=== PATIENT | female | born 1965 | race Caucasian/White ===

== ENCOUNTER → 2018-08-02 | Outpatient (REF) | payer BC ==
[~2018-08-02] MED LIST: ASPI81TA85 PO; LOSA100T8 PO
[2018-08-02 13:13] LABS: BLOOD UREA NITROGEN 17 MG/DL (7-18); CALCIUM LEVEL 9.2 MG/DL (8.5-10.1); CARBON DIOXIDE LEVEL 27 MEQ/L (21-32); CHLORIDE LEVEL 106 MEQ/L (98-107); GLOMERULAR FILTRATION RATE > 60.0 (>51); GLUCOSE, FASTING 86 MG/DL (70-100); POTASSIUM SERUM 3.9 MEQ/L (3.5-5.1); SODIUM LEVEL 142 MEQ/L (136-145)
== END ==
LOC: M SFHCLERA 09:43
PROVIDERS: ATTEND Family Medicine
DX: R73.03 Prediabetes (principal)

== ENCOUNTER → 2018-08-23 | Outpatient (REF) | payer BC ==
[2018-08-25 16:40] LABS: HPV HYBRID CAPTURE II Negative (Negative)
== END ==
LOC: M LAB REF 18:16
PROVIDERS: ATTEND Obstetrics & Gynecology
DX: Z12.4 Encounter for screening for malignant neoplasm of cervix (principal)
CPT/HCPCS: 87624; G0123

== ENCOUNTER → 2018-08-30 | Outpatient (CLI) | payer BC ==
--- NOTE | 2018-08-30 18:44 | REP ---
Clinical: Postmenopausal bleeding. Technique: Transabdominal pelvic ultrasound followed by transvaginal examination for better evaluation of the endometrium and adnexa. Findings: Bladder is grossly unremarkable and measures 11.3 x 11.2 x 7.2 cm. Minimal bladder wall thickening cannot be excluded although no obvious abnormalities appreciated. Heterogeneous myomatous anteverted uterus measures 7.7 x 3.2 x 5.3 cm. Right intramural fibroid measures 1.6 x 1.4 x 1.3 cm; left intramural fibroid measures 0.7 x 0.6 x 0.5 cm; left intramural anterior fibroid measures 0.6 x 0.5 x 0.7 cm; left posterior intramural fibroid measures 1.2 x 0.9 x 1.1 cm. The cervix appears prominent and a small amount of endocervical fluid is appreciated of uncertain etiology but may represent hemorrhagic debris. Endometrial complex measures 5.3 mm thickness and no discrete endometrial abnormality is identified. Right ovary measures 2.5 x 1.2 x 1.6 cm and appears normal. Left ovary measures 2.1 x 1.8 x 2.4 cm and includes 1.2 cm cyst. No pelvic fluid or adnexal mass lesion. Impression: Heterogeneous myomatous uterus as described above. 1.2 cm left ovarian cyst likely physiologic. Electronically Signed by Thom Rice MD 08/30/2018 06:34 P
== END ==
LOC: M RAD 17:30
PROVIDERS: ATTEND Obstetrics & Gynecology
DX: N95.0 Postmenopausal bleeding (principal); N83.202 Unspecified ovarian cyst, left side; D25.1 Intramural leiomyoma of uterus

== ENCOUNTER 2018-09-28 09:26 | Day surgery (SDC) | payer BC ==
[~2018-09-28] VITALS: Ht 162.6 cm; Wt 99.8 kg
[~2018-09-28 09:26] MED LIST changes: +LR 1,000 ML IV ONE
[2018-09-28 09:52] LABS: HEMATOCRIT 41.3 % (36.0-47.0); HEMOGLOBIN 13.8 g/dl (12.0-15.5); MEAN CORPUSCULAR HEMOGLOBIN 29.4 pg (27.0-33.0); MEAN CORPUSCULAR HGB CONC 33.4 g/dl (32.0-36.5); MEAN CORPUSCULAR VOLUME 87.9 fl (80.0-96.0); PLATELET COUNT, AUTOMATED 284 10^3/uL (150-450); WHITE BLOOD COUNT 5.6 10^3/uL (4.0-10.0)
[2018-09-28 10:22] LABS: HCG, SERUM QUALITATIVE NEGATIVE (NEGATIVE)
[2018-09-28] MEDS ORDERED: SILVER NITRATE APPLICATOR As Ordered ONE (10:48)
[2018-09-28] MEDS ORDERED: ePHEDrine SULFATE 25 MG/5 ML(5MG/ML) SYRINGE As Ordered ONE (13:38)
[2018-09-28] MEDS ORDERED: ONDANSETRON 4MG/2ML VIAL (J2405) As Ordered ONE (13:39)
[2018-09-28] MEDS ORDERED: dexameTHASONE 4 MG/ML 1ML VIAL (J1100) As Ordered ONE (13:39)
[2018-09-28] MEDS ORDERED: ACETAMINOPHEN 1000MG 100ML IV BTL (OFIRMEV) (J0131 PER 10MG) As Ordered ONE (13:39)
[2018-09-28] MEDS ORDERED: fentaNYL 250 MCG/5 ML INJECTION (J3010) As Ordered ONE (13:39)
[2018-09-28] MEDS ORDERED: LIDOCAINE 2% INJ 100 MG/5 ML SDV (FOR ANES.) As Ordered ONE (13:39)
[2018-09-28] MEDS ORDERED: MIDAZOLAM INJ 2 MG/2 ML VIAL (J2250) As Ordered ONE (13:39)
[2018-09-28] MEDS ORDERED: KETOROLAC 60 MG/2 ML VIAL (J1885) As Ordered ONE (13:39)
[2018-09-28] MEDS ORDERED: NORCO, ANEXSIA 5/325MG TABLET (HYDROcodone/ACETAMINOPHEN) PO PRN (14:45)
[2018-09-28] MEDS ORDERED: fentaNYL 100 MCG/2 ML INJECTION (J3010) IV PRN (14:45)
[2018-09-28] MEDS ORDERED: LR 1,000 ML IV SCH (14:45)
[2018-09-28] MEDS ORDERED: ONDANSETRON 4MG/2ML VIAL (J2405) IV PRN (14:45)
--- NOTE | 2018-09-28 16:35 | ECGEPIP ---
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
[2018-09-28 16:45] VITALS: BP 167/75
--- NOTE | 2018-09-28 21:31 | RO ---
DATE OF PROCEDURE: 09/28/2018 PREOPERATIVE DIAGNOSIS: Postmenopausal bleeding. POSTOPERATIVE DIAGNOSIS: Postmenopausal bleeding. PROCEDURE PERFORMED: Hysteroscopy and endometrial biopsy. SURGEON: Eyad Morrell DO GLOBAL PRODUCT MANAGER: None. ANESTHESIA TYPE: General with LMA. SPECIMENS TO PATHOLOGY: Endometrial biopsy. ESTIMATED BLOOD LOSS: 10 mL. FLUID REPLACEMENT: 100 mL of lactated Ringer's. DRAINS: In-and-out catheter 400 mL COMPLICATIONS: None. PREOPERATIVE ANTIBIOTICS: None indicated. INTRAOPERATIVE FINDINGS: Atrophic vagina. Small nulliparous stenotic cervix. Atrophic appearing endometrium on hysteroscopy examination. INDICATION: The patient is a 53-year-old who experienced postmenopausal bleeding. We have elected to proceed with endometrial evaluation via hysteroscopy and endometrial biopsy under anesthesia. DESCRIPTION OF PROCEDURE: The patient was counseled and consented on the risks, benefits, indications, and alternatives of the procedure. Informed consent was obtained. She was taken to the operating room with an IV running and placed on the operating table in the dorsal supine position. General anesthesia was administered and the airway secured with an LMA without any difficulty. She was then placed in the high lithotomy position. She was prepared and draped in a normal sterile fashion. Time-out was performed per protocol. The bladder was drained with a sterile in-and-out catheter. A sterile speculum was placed with good visualization of the cervix. The anterior lip of the cervix was grasped with a single-tooth tenaculum and downward traction was applied. The stenotic cervix was dilated first with lacrimal duct probe and then sequentially with Luc dilators up to a #15. The uterus sounded to 7 cm. The cervix was so stenotic it would not accommodate the smallest curette that was on the table, so the decision was made to use an endometrial Pipelle with multiple passes to obtain tissue. Once it was felt that an adequate amount of tissue was obtained, the Pipelle was removed. The hysteroscope was placed transcervically into the intrauterine cavity. No intracavitary masses were evident. Atrophic appearing endometrium was present. No concerning mass was able to be visualized. The hysteroscope was removed. An additional pass of the endometrial Pipelle was taken to the level of the fundus, again sounded to 7 cm. One additional suction of tissue was performed and all of the tissue was sent together for permanent section. Minimal bleeding from the os was noted. The single-tooth tenaculum was removed. The tenaculum sites were hemostatic. Given the excellent hemostasis, decision was made to conclude the procedure. All instruments were removed from the vagina. The patient tolerated the entire procedure very well. Sponge, lap, needle and instrument counts were correct per protocol.
== END 2018-09-28 16:52 | disposition home or self-care (01) ==
LOC: M SDC 09:26
PROVIDERS: ATTEND Obstetrics & Gynecology
DX: N95.0 Postmenopausal bleeding (principal); N95.2 Postmenopausal atrophic vaginitis; D68.51 Activated protein C resistance; I10 Essential (primary) hypertension; Z79.82 Long term (current) use of aspirin; Z79.899 Other long term (current) drug therapy
CPT/HCPCS: 36415; 58558; 84703; 85027; 86850; 86900; 86901; 88305; 93005; J0131; J1100; J1885; J2250; J2405; J3010

== ENCOUNTER → 2019-01-24 | Outpatient (REF) | payer BC ==
[~2019-01-24] MED LIST changes: -LR 1,000 ML IV ONE
[2019-01-24 12:30] LABS: ALBUMIN 3.9 GM/DL (3.2-5.2); BILIRUBIN,DIRECT 0.1 MG/DL (0.0-0.2); BILIRUBIN,TOTAL 0.4 MG/DL (0.2-1.0); TOTAL PROTEIN 7.6 GM/DL (6.4-8.2)
== END ==
LOC: M SFHCLERA 09:04
PROVIDERS: ATTEND Family Medicine
DX: B35.9 Dermatophytosis, unspecified (principal)

== ENCOUNTER → 2020-02-27 | Outpatient (REF) | payer BC ==
[~2020-02-27] MED LIST changes: -ASPI81TA85 PO; +ASPI81TA86 PO
[2020-02-27 12:21] LABS: BLOOD UREA NITROGEN 18 MG/DL (7-18); CARBON DIOXIDE LEVEL 28 MEQ/L (21-32); CHLORIDE LEVEL 107 MEQ/L (98-107); CHOLESTEROL LEVEL 194 MG/DL (<200); CREATININE FOR GFR 0.68 MG/DL (0.55-1.30); GLOMERULAR FILTRATION RATE > 60.0 (>51); GLUCOSE, FASTING 95 MG/DL (70-100); HDL CHOLESTEROL 52 MG/DL (>40); LDL CHOLESTEROL 124 MG/DL (<100); NON-HDL-C 142 MG/DL; POTASSIUM SERUM 3.8 MEQ/L (3.5-5.1); SODIUM LEVEL 140 MEQ/L (136-145); TRIGLYCERIDES LEVEL 92 MG/DL (<150)
== END ==
LOC: M SFHCLERA 08:28
PROVIDERS: ATTEND Family Medicine
DX: I10 Essential (primary) hypertension (principal)

== ENCOUNTER → 2021-07-18 | Outpatient (CLI) | payer BC ==
[2021-07-18 11:27] LABS: HEMOGLOBIN A1c 5.6 %
[2021-07-18 11:33] LABS: ALBUMIN 3.5 GM/DL (3.2-5.2); ALT/SGPT 36 U/L (12-78); BILIRUBIN,TOTAL 0.3 MG/DL (0.2-1.0); BLOOD UREA NITROGEN 19 MG/DL (7-18); CARBON DIOXIDE LEVEL 29 MEQ/L (21-32); CHLORIDE LEVEL 107 MEQ/L (98-107); CHOLESTEROL LEVEL 183 MG/DL (<200); CHOLESTEROL RISK RATIO 3.452 (<5); CREATININE FOR GFR 0.76 MG/DL (0.55-1.30); GLOMERULAR FILTRATION RATE > 60.0 (>51); GLUCOSE, FASTING 100 MG/DL (70-100); HDL CHOLESTEROL 53 MG/DL (>40); LDL CHOLESTEROL 109 MG/DL (<100); NON-HDL-C 130 MG/DL; POTASSIUM SERUM 3.7 MEQ/L (3.5-5.1); SODIUM LEVEL 142 MEQ/L (136-145); TOTAL PROTEIN 7.6 GM/DL (6.4-8.2); TRIGLYCERIDES LEVEL 107 MG/DL (<150)
== END ==
LOC: M LAB 10:09
PROVIDERS: ATTEND Student in an Organized Health Care Education/Training Program
DX: Z13.1 Encounter for screening for diabetes mellitus (principal); I10 Essential (primary) hypertension

== ENCOUNTER → 2023-04-27 | Day surgery (SDC) | payer BC ==
[~2023-04-27] VITALS: Ht 162.6 cm; Wt 103.9 kg
[~2023-04-27] MED LIST changes: +ASPI81CH33 PO; +LIDOCAINE 2% 100MG/5ML SDV (FOR ANES.) As Ordered ONE; +propofoL 200 MG/20 ML VIAL As Ordered ONE
[2023-04-27] MEDS: NS 1,000 ML IV ONE (08:39)
[2023-04-27 10:02] VITALS: TEMP 98.6
[2023-04-27 10:20] VITALS: BP 122/81; O2SAT 99
== END | disposition home or self-care (01) ==
LOC: M OPP 08:03
PROVIDERS: ATTEND Internal Medicine Gastroenterology
DX: Z12.11 Encounter for screening for malignant neoplasm of colon (principal); K63.5 Polyp of colon; K64.8 Other hemorrhoids; Z86.010 Personal history of colon polyps; I10 Essential (primary) hypertension; Z79.899 Other long term (current) drug therapy; Z79.82 Long term (current) use of aspirin